=== PATIENT | male | born 1990 | race Two or more races ===

== ENCOUNTER → 2020-03-20 | Emergency (ER) | payer OTHER ==
[~2020-03-20] VITALS: Ht 175.3 cm; Wt 117.9 kg
[~2020-03-20] MED LIST: HYDROmorphone HCL 2 MG/ML VL IV ONE; ONDANSETRON HCL 4 MG/2 ML VIAL IV ONE
[2020-03-20 22:43] LABS: Eosinophils % (auto) 2.2 % (0.0-7.0); Lymphocytes % (auto) 22.7 % (10.0-50.0); Monocytes % (auto) 7.3 % (0.0-12.0); Neutrophils % (auto) 67.4 % (37.0-80.0); White Blood Cell 10.7 10^3/uL (4.4-10.8)
[2020-03-20 22:44] LABS: Basophils # (auto) 0 10 ^3/uL (0-0.2); Basophils % (auto) 0.4 % (0.0-2.0); Eosinophils # (auto) 0.2 10 ^3/uL (0-0.8); Hematocrit 42.8 % (41.0-53.0); Hemoglobin 14.5 g/dL (13.5-17.5); Lymphocytes # (auto) 2.4 10 ^3/uL (0.4-5.4); Mean Corpuscular Hemoglobin 30.4 pg (28.0-32.0); Mean Corpuscular Hgb Conc. 33.8 g/dL (32.0-36.0); Mean Corpuscular Volume 89.9 fL (80.0-100.0); Monocytes # (auto) 0.8 10 ^3/uL (0-1.3); Neutrophils # (auto) 7.2 10 ^3/uL (1.6-8.6); Platelet Count (auto) 190 10^3/uL (140-450); Red Blood Cells 4.77 10^6/uL (4.5-5.90); Red Cell Distribution Width 12.6 % (11.8-14.3)
[2020-03-20 23:03] LABS: BUN/Creatinine Ratio 11.4; Calcium 8.5 mg/dL (8.5-10.1); Potassium 3.7 mmol/L (3.5-5.1)
[2020-03-20 23:06] LABS: Bilirubin, Total 0.4 mg/dL (0.2-1.0); Total Protein 7.5 g/dL (6.4-8.2)
[2020-03-21 02:30] VITALS: BP 126/67
[2020-03-21 03:46] LABS: Urine Bacteria NONE SEEN /hpf (None Seen); Urine Blood 2+ /uL (Negative); Urine Mucus FEW (None Seen); Urine Specific Gravity 1.023 (1.001-1.035); Urine WBC 4 /hpf (0 - 3)
== END | disposition home or self-care (01) ==
LOC: ER 21:48
DX: K80.20 Calculus of gallbladder without cholecystitis without obstruction (principal); N20.0 Calculus of kidney; Z90.49 Acquired absence of other specified parts of digestive tract; Z88.5 Allergy status to narcotic agent
CPT/HCPCS: 36415; 74176; 76870; 80053; 81001; 85025; 96374; 96375; 99285; J1170; J2405